=== PATIENT | male | born 2000 | race Caucasian/White ===

== ENCOUNTER 2022-01-13 14:34 | Emergency (ER) | payer MEDICAID, SELFPAY ==
[2022-01-13 14:50] VITALS: BP 128/79; PULSE 102; RESP 16; TEMP 36.3; O2SAT 97
--- NOTE | 2022-01-13 15:38 | ED.DENTAL ---
HPI - Dental/Oral General Chief complaint: Dental/Oral Stated complaint: SORE IN MOUTH Time Seen by Provider: 01/13/22 14:36 Source: patient and RN notes reviewed Mode of arrival: ambulatory Limitations: no limitations History of Present Illness Location: Tooth # (32) Onset (ago): day(s) (1) Duration: constant Severity: mild Severity scale (1-10): 4 Relieving factors: nothing Exacerbating factors: chewing Context: poor dental care Treatment prior to arrival: none Related Data Allergies Allergy/AdvReac Type Severity Reaction Status Date / Time No Known Allergies Allergy Verified 01/13/22 15:02 Review of Systems Review of Systems: All systems reviewed & are unremarkable except as noted in HPI and below PMFSH Past Medical History Medical History Aphthous ulcer Dental abscess Exam Const: General: no acute distress Orientation/consciousness: patient oriented x3 Limitations: no limitations HENMT: Head: normal to inspection Ears: external ears normal, TM's normal bilaterally and EAC's normal General nose exam: Normal external nose present and Normal nares present Face and sinus: normal facial exam and sinuses nontender Mouth: Yes lip normal and Yes moist mucous membranes Teeth and gingiva: abnormal tooth and associated gingiva Eyes: Conjunctivae: conjunctivae normal Pupils: Equal, round and reactive pupils present EOM: EOMs intact bilaterally Neck: Neck: normal visual inspection, no lymphadenopathy and no meningeal signs Chest: Chest palpation & inspection: normal inspection of the chest Resp: Effort & Inspection: normal respiratory effort Auscultation: clear to auscultation bilaterally Cardio: Rate: regular rate Rhythm: regular rhythm GI: GI Palp: Yes Soft to palpation and No Tenderness to palpation present (GI) Auscultation: normal bowel sounds : General: Yes bladder normal to palpation and Yes no CVA tenderness Testes: Testes normal Back/Spine/Pelvis: Back: no CVA tenderness Skin: General skin exam: normal color Rashes: no rashes Neuro: General: patient oriented x3, moves all extremities, no meningeal signs, no focal motor deficits and CN's II-XI intact bilaterally Extrem: General: normal to inspection and no pedal edema Psych: Appearance: grossly normal and well kempt Mental Status: mental status grossly normal Affect: normal affect Attitude: cooperative Thought content: Yes Normal thought content present Course Course Emergency Course: Pt was stable in the ED, less painful. Reevaluation(s) Reevaluation #1: VSS. Date: 01/13/22 Time: 14:57 Vital Signs Vital signs: Vital Signs Temperature 36.3 C L 01/13/22 14:50 Pulse Rate 102 H 01/13/22 14:50 Respiratory Rate 16 01/13/22 14:50 Blood Pressure 128/79 01/13/22 14:50 Pulse Oximetry 97 01/13/22 14:50 Temperature 36.3 C L 01/13/22 14:50 Pulse Rate 102 H 01/13/22 14:50 Respiratory Rate 16 01/13/22 14:50 Blood Pressure 128/79 01/13/22 14:50 Pulse Oximetry 97 01/13/22 14:50 MDM - Dental/Oral Differential Diagnosis Differential diagnosis: Likely gingival abscess, dental caries, toothache, dental abscess and aphthous ulcer Medical Records Attestation: I reviewed the patient's medical records. Critical Care Time Critical Care Time Critical Care Time: No Total Critical Care Time: 0 Discharge Plan Discharge Clinical Impression: Dental abscess, Aphthous ulcer Patient Disposition: Home, Self-Care Condition: Stable Instructions: Antibiotic Form, Dental Abscess (ED), Canker Sores (ED) Additional Instructions: Home. May RTC prn. Dentist in 1-2 days. Rx below. Salt water gargles. Prescriptions: New amoxicillin 875 mg tablet 875 mg PO Q12H Qty: 20 RF: 0 ibuprofen 800 mg tablet 800 mg PO TID Qty: 20 RF: 0 omeprazole magnesium [Prilosec OTC] 20 mg tablet,delayed release (DR/EC) 20 mg PO BID Qty: 20 RF: 0 Fo
[2022-01-13] MEDS: ACETAMINOPHEN 325 MG TABLET 650 MG PO (15:41)
== END 2022-01-13 15:45 | disposition home or self-care (01) ==
PROVIDERS: Emergency Provider Emergency Medicine
DX: K04.7 Periapical abscess without sinus (principal); K12.0 Recurrent oral aphthae
CPT/HCPCS: 99283; A9270

== ENCOUNTER 2022-04-12 01:23 | Emergency (ER) | payer OTHER, SELFPAY ==
[2022-04-12] VITALS (19 sets, daily range): BP systolic 125–168; BP diastolic 78–103; PULSE 100–125; RESP 18–30; TEMP 37.2–37.4; O2SAT 97–100
--- NOTE | 2022-04-12 01:45 | ED.NAVMDI ---
HPI - Nausea/Vomiting/Diarrhea General Chief complaint: Nausea/Vomiting/Diarrhea Stated complaint: Diabetic Source: patient, EMS and RN notes reviewed Mode of arrival: ambulatory Limitations: no limitations History of Present Illness MD elicited complaint: nausea and vomiting Onset (ago): day(s) (1) Description of vomiting: bilious Associated nausea: Yes Associated abdominal pain: No Location of pain: none Exacerbating factors: eating Relieving factors: none Associated symptoms: myalgias, fever/chills, headaches, malaise, shortness of breath and weakness Related Data Home Medications Medication Instructions Recorded Confirmed gabapentin 100 mg capsule 100 mg PO BID 04/12/22 04/12/22 insulin glargine 100 unit/mL (3 30 unit subcut HS 04/12/22 04/12/22 mL) subcutaneous pen (Lantus Solostar U-100 Insulin) insulin lispro 100 unit/mL See Rx Instructions .Route .COMPLEX 04/12/22 04/12/22 subcutaneous pen (Humalog KwikPen (U-100) Insulin) Allergies Allergy/AdvReac Type Severity Reaction Status Date / Time No Known Allergies Allergy Verified 04/12/22 01:30 Review of Systems Review of Systems: All systems reviewed & are unremarkable except as noted in HPI and below Constitutional: Constitutional: Reports fever(s) and Reports weakness Cardiovascular: Cardiovascular: Reports rapid heart rate Respiratory: Respiratory: Reports dyspnea Gastrointestinal: Gastrointestinal: Reports as per HPI Genitourinary: Genitourinary: Reports urinary frequency PMFSH Past Medical History Medical History Type 1 diabetes Social History Social History Smoking status: Never smoker Alcohol intake: never Substance use: current Substance use type: marijuana Spiritual care concerns: No Exam Const: General: alert and ill appearing acutely Nutritional Appearance: well nourished and thin Orientation/consciousness: patient oriented x3 Limitations: no limitations HENMT: Head: normal to inspection Ears: external ears normal Face and sinus: normal facial exam Mouth: Yes dry mucous membranes Eyes: Conjunctivae: conjunctivae normal Cornea: corneas normal Pupils: Equal, round and reactive pupils present EOM: EOMs intact bilaterally Neck: Neck: normal visual inspection Resp: Effort & Inspection: tachypneic Auscultation: clear to auscultation bilaterally Cardio: Rate: tachycardic Rhythm: regular rhythm GI: GI Palp: Yes Soft to palpation and No Tenderness to palpation present (GI) Auscultation: normal bowel sounds Back/Spine/Pelvis: Cervical Spine: cervical ROM normal Thoracic/Lumbar Spine: thoraco-lumbar ROM normal Skin: General skin exam: normal color Rashes: no rashes Neuro: General: patient oriented x3, moves all extremities, no focal motor deficits and CN's II-XI intact bilaterally Speech: normal speech Extrem: General: normal to inspection and no clubbing, cyanosis or edema Psych: Mental Status: mental status grossly normal Affect: normal affect Attitude: cooperative Course Vital Signs Vital signs: Vital Signs Temperature 37.2 C 04/12/22 01:23 Pulse Rate 118 H 04/12/22 01:23 Respiratory Rate 30 H 04/12/22 01:23 Blood Pressure 167/89 H 04/12/22 01:23 Pulse Oximetry 100 04/12/22 01:23 Oxygen Delivery Room Air 04/12/22 01:23 Temperature 37.4 C 04/12/22 06:51 Pulse Rate 105 H 04/12/22 07:25 Respiratory Rate 20 04/12/22 07:25 Blood Pressure 153/85 H 04/12/22 07:25 Pulse Oximetry 100 04/12/22 07:25 Oxygen Delivery Room Air 04/12/22 07:25 Oxygen Flow Rate 2 04/12/22 02:15 Transfer Transfered to: [facility] Transfer rationale: higher level of care. Accepting physician: Dr. Foley MDM - Nausea/Vomiting/Diarrhea Lab Data Attestation: I reviewed the patient's lab results. Result diagrams: 04/12/22 05:50 04/12/22
[2022-04-12] MEDS: LACTATED RINGERS 1,000 ML 999 ML IV CONT ×2 (01:55→03:01)
[2022-04-12] MEDS: INSULIN HUMAN REGULAR (*BKC) 100 UNITS/ML 10 UNITS SUB-Q (02:09)
[2022-04-12 02:26] LABS: SARS-CoV-2 Ag Negative (Negative)
[2022-04-12 02:41] LABS: Base Excess ABG -24.8 mmol/L (0-2); HCO3 ABG 2.8 mmol/L (23-29); Oxygen Saturation ABG 96.9 % (95-97); Oxyhemoglobin 95.9 % (94-100); PO2 ABG 117.8 mmHg (80-90); Total Hemoglobin 17.7 g/dL (12.0-18.0); pH ABG 7.07 (7.35-7.45)
[2022-04-12 02:42] LABS: Glucose Point of Care > 450 mg/dl (65-105)
[2022-04-12 02:45] LABS: Device NASAL CANNULA; Modified Allen's Test Pass; Site Drawn LEFT RADIAL
[2022-04-12 02:49] LABS: Hematocrit 49.8 % (40.0-54.0); Hemoglobin 16.6 g/dL (14.0-18.0); Mean Corpuscular HGB Conc 33.3 g/dL (32.0-36.0); Mean Corpuscular Hemoglobin 32.2 pg (27.0-31.0); Mean Corpuscular Volume 96.7 fL (78.0-102.0); Mean Platelet Volume 9.4 fl (8.7-11.0); Platelet Count Result 367 K/mm3 (150-420); Red Blood Count 5.15 M/mm3 (4.70-6.10); Red Cell Distribution Width 12.5 % (11.6-14.4)
[2022-04-12 02:55] LABS: White Blood Count 29.9 K/mm3 (4.8-10.8)
[2022-04-12 03:02] LABS: Lactic Acid Reflex 3.3 mmol/L (0.4-2.0)
[2022-04-12] MEDS: ONDANSETRON INJ 4 MG/2 ML VIAL IV PUSH (03:02)
[2022-04-12] MEDS: INSULIN HUMAN REGULAR (*BKC) 100 UNITS/ML 10 UNITS IV PUSH (03:02)
[2022-04-12 03:05] LABS: Alanine Aminotransferase 39 U/L (16-63); Albumin Level 3.8 g/dL (3.4-5.0); Alkaline Phosphatase 121 U/L (46-116); Aspartate Amino Transferase 23 U/L (15-37); Bilirubin,Total 0.5 mg/dL (0.00-1.00); Blood Urea Nitrogen 12 mg/dL (7-18); Calcium 7.9 mg/dL (8.5-10.1); Carbon Dioxide 5 mmol/L (21-32); Chloride 95 mmol/L (98-108); Estimated CRCL calculation 76 ml/min; Estimated Glomerular Filt Rate > 60; Magnesium 1.9 mg/dL (1.8-2.4); Potassium 5.7 mmol/L (3.5-5.1); Sodium 129 mmol/L (136-145); Total Protein 7.8 g/dL (6.4-8.2)
[2022-04-12 03:06] LABS: CRP < 0.5 mg/dL (0.0-0.9); Osmolality Calculated 291 mOsm/kg (285-295)
[2022-04-12 03:07] LABS: Glucose 529 mg/dL (70-99)
[2022-04-12] MEDS: INSULIN REG 100 UNITS/100 ML 100 UNITS/100 ML BAG IV CONT (03:11)
[2022-04-12 03:12] LABS: Add Urine Microscopic? YES; Appearance Urine Clear (Clear); Bilirubin Urine Negative (Negative); Blood Urine 1+ (Negative); Color Urine Light Yellow (Yellow); Glucose Urine UA 2+ (Negative); Ketones Urine 3+ (Negative); Leukocyte Esterase Ur Negative LEU/UL (Negative); Nitrate Urine Negative (Negative); Protein Urine 2+ (Negative); Specific Grav Ur >= 1.030 (1.010-1.020); Urobilinogen Urine 0.2 mg/dL (0.2-1.0); pH Urine 5.5 (5.0-8.0)
[2022-04-12 03:16] LABS: Acetone Small (Negative)
[2022-04-12 03:22] LABS: RBC Urine None seen /hpf (0-2); Squamous Epithelial Cell Urine None seen /hpf (Few); WBC Urine None seen /hpf (0-3)
[2022-04-12 03:23] LABS: Bacteria Urine None seen /hpf
--- NOTE | 2022-04-12 03:26 | PC.NURSE ---
RN rechecked pt's blood sugar and got 447.
[2022-04-12 03:29] LABS: Band Neutrophils Percent 9 % (0-6); Basophils Percent Manual 0 % (0-1); Eosinophils Percent Manual 0 % (1-6); Lymphocytes Absolute Manual 4.18 K/mm3 (1.1-4.5); Lymphocytes Percent Manual 14 % (18-44); Metamyelocytes Percent 3 %; Monocytes Percent Manual 0 % (3-9); Neutrophils Absolute Manual 24.81 K/mm3 (1.3-6.7); Neutrophils Percent Manual 74 % (46-73); Platelet Estimate Adequate (Adequate); Total Cells Counted 100
[2022-04-12 03:37] LABS: SARS-CoV-2 RNA PCR Negative (Negative)
[2022-04-12 03:45] LABS: Glucose Point of Care 407 mg/dl (65-105)
--- NOTE | 2022-04-12 03:45 | PC.NURSE ---
RN checked pt's blood sugar and got 407.
[2022-04-12 04:02] LABS: Glucose Point of Care 334 mg/dl (65-105)
--- NOTE | 2022-04-12 04:04 | PC.NURSE ---
RN called ERP to update on pt's blood sugars and to find when RN should stop the insulin drip. ERP states to recheck blood sugars every 30 minutes and call him when the sugar is at 250. ERP updated on labs and pt condition. No new orders received.
[2022-04-12 04:33] LABS: Glucose Point of Care 275 mg/dl (65-105)
[2022-04-12 05:03] LABS: Glucose Point of Care 202 mg/dl (65-105)
--- NOTE | 2022-04-12 05:03 | PC.NURSE ---
RN rechecked pt's blood sugar and it is 202. ERP called. ERP ordered for insulin drip to be stopped [facility] RN stops insulin drip and calls eyewear manufacturing supervisorArin to start transfer process.
--- NOTE | 2022-04-12 05:15 | PC.NURSE ---
Pt's grandmother asks for pt for pt's step father Adam John to be allowed to talk to pt if Adam calls.
--- NOTE | 2022-04-12 05:24 | PC.NURSE ---
RN talked to Arin, fast food shift supervisor from [employer], and asked for a repeat BMP and lactic. Arin also states that Dr. Edwards will be calling soon.
[2022-04-12] MEDS: LACTATED RINGERS 1,000 ML 200 ML IV CONT (05:30)
[2022-04-12 05:42] LABS: Reflex Lactic Acid Yes or No Add Lactic
--- NOTE | 2022-04-12 05:50 | PC.NURSE ---
Addendum entered by Yony Morgan RN 04/12/22 06:06: This was done at 0554. Original Note: RN checked pt's blood sugar and it was 178.
[2022-04-12 05:52] LABS: Base Excess ABG -18.9 mmol/L (0-2); HCO3 ABG 5.4 mmol/L (23-29); Oxygen Content ABG 24.5 %vol (16.0-22.0); Oxygen Saturation ABG 98.3 % (95-97); Oxyhemoglobin 97.4 % (94-100); PO2 ABG 124.1 mmHg (80-90); Total Hemoglobin 17.8 g/dL (12.0-18.0); pH ABG 7.22 (7.35-7.45)
[2022-04-12 05:55] LABS: Hematocrit 49.9 % (40.0-54.0); Hemoglobin 17.1 g/dL (14.0-18.0); Mean Corpuscular HGB Conc 34.3 g/dL (32.0-36.0); Mean Corpuscular Hemoglobin 31.8 pg (27.0-31.0); Mean Corpuscular Volume 92.9 fL (78.0-102.0); Platelet Count Result 337 K/mm3 (150-420); Red Blood Count 5.37 M/mm3 (4.70-6.10); Red Cell Distribution Width 12.4 % (11.6-14.4)
[2022-04-12 05:57] LABS: Device ROOM AIR; Modified Allen's Test Pass; Site Drawn RIGHT RADIAL
[2022-04-12 05:58] LABS: White Blood Count 33.4 K/mm3 (4.8-10.8)
[2022-04-12 06:00] LABS: PCO2 ABG 13.5 mmHg (35-45)
[2022-04-12 06:06] LABS: Glucose Point of Care 178 mg/dl (65-105)
[2022-04-12 06:09] LABS: Anion Gap 28 mmol/L (8-16); Blood Urea Nitrogen 10 mg/dL (7-18); Calcium 8.5 mg/dL (8.5-10.1); Carbon Dioxide 6 mmol/L (21-32); Chloride 99 mmol/L (98-108); Estimated CRCL calculation 90 ml/min; Estimated Glomerular Filt Rate > 60; Glucose 181 mg/dL (70-99); Osmolality Calculated 280 mOsm/kg (285-295); Potassium 4.4 mmol/L (3.5-5.1); Sodium 133 mmol/L (136-145)
[2022-04-12 06:18] LABS: Lactic Acid 1.4 mmol/L (0.4-2.0)
[2022-04-12 06:30] LABS: Band Neutrophils Percent 9 % (0-6); Lymphocytes Absolute Manual 7.34 K/mm3 (1.1-4.5); Lymphocytes Percent Manual 22 % (18-44); Metamyelocytes Percent 3 %; Monocytes Absolute Manual 1.67 K/mm3 (0.1-0.90); Monocytes Percent Manual 5 % (3-9); Neutrophils Absolute Manual 23.38 K/mm3 (1.3-6.7); Neutrophils Percent Manual 61 % (46-73); Platelet Estimate Adequate (Adequate); Total Cells Counted 100
--- NOTE | 2022-04-12 06:44 | PC.NURSE ---
RN talked to Mabel ICU nurse and took report. Mabel states that she is the night nurse and the oncoming nurse who will be taking care of pt is Kathie.
[2022-04-12 06:52] LABS: Glucose Point of Care 151 mg/dl (65-105)
--- NOTE | 2022-04-12 07:30 | PC.NURSE ---
Pt has LR still running at 200 mLs an hour. pt has received 384.1 mLs of LR and still has fluids running when transferred to EMS stretcher.
== END 2022-04-12 07:32 | disposition short-term general hospital (02) ==
PROVIDERS: Emergency Provider Emergency Medicine; PCP Internal Medicine
DX: E10.10 Type 1 diabetes mellitus with ketoacidosis without coma (principal); Z20.822 Contact with and (suspected) exposure to COVID-19
CPT/HCPCS: 36415; 36600; 80048; 80053; 81001; 82010; 82805; 82948; 83605; 83735; 85025; 86140; 87040; 87426; 96361; 96365; 96366; 96375; 99285; C9803; J1815; J2405; J7120; U0003; U0005

== ENCOUNTER 2022-04-12 08:48 | Inpatient (IN) | payer OTHER, SELFPAY ==
[2022-04-12] VITALS (22 sets, daily range): BP systolic 95–148; BP diastolic 65–110; PULSE 93–121; RESP 15–24; TEMP 36.4–37.3; O2SAT 96–100; BMI 21.7
--- NOTE | ~2022-04-12 | XR_ITS ---
EXAMINATION: XR chest 1V portable DATE: 04/12/2022 09:14 INDICATION: Diabetic ketoacidosis TECHNIQUE: frontal view of the chest was obtained. COMPARISON: None FINDINGS: The lungs are clear with no focal airspace opacities, pulmonary edema, pleural effusion or pneumothor ax. The cardiomediastinal silhouette is normal. Visualized bones and soft tissues are unremarkable. IMPRESSION: 1. No acute cardiopulmonary disease. Reviewed, dictated and finalized at location A.
[2022-04-12 08:14] LABS: Glucose Point of Care 162 mg/dl (65-105)
--- NOTE | 2022-04-12 08:30 | ADMGEN ---
This patient, Neftali Ochoa, was admitted to Intensive Care Unit-10. Patient/family oriented to hospital policies and general routines including ID bracelet, bed and alarms, visiting hours, pain management, procedures, bathroom and other care routines, personal items, smoking policy, room service/diet, and visiting hours. Information on how to activate the Rapid Response Team has been discussed. Patient/Family are encouraged to report perceived risks to care and to ask questions if they do not understand what they are told or what they should do.
--- NOTE | 2022-04-12 08:35 | ADMGEN ---
This patient, Neftali Ochoa, was admitted to Intensive Care Unit-10 at 0803. Patient/family oriented to hospital policies and general routines including ID bracelet, bed and alarms, visiting hours, pain management, procedures, bathroom and other care routines, personal items, smoking policy, room service/diet, and visiting hours. Information on how to activate the Rapid Response Team has been discussed. Patient/Family are encouraged to report perceived risks to care and to ask questions if they do not understand what they are told or what they should do.
--- NOTE | 2022-04-12 08:41 | WPDCNINT ---
Assessment and Plan Assessment and plan (1) Diabetic keto-acidosis: Qualifiers: Diabetes mellitus complication detail: without coma Diabetes mellitus type: type 1 Qualified Code(s): E10.10 - Type 1 diabetes mellitus with ketoacidosis without coma Code(s): E11.10 - Type 2 diabetes mellitus with ketoacidosis without coma Status: Acute Assessment and Plan: Patient received 3 L of IVF bolus in ER and I will IV fluid infusion Patient will be started on Insulin infusion and Q1H glucose monitoring Serial labs are ordered Replace electrolytes as needed Will transition to SC insulin once AG is closed UA was negative Will check chest x-ray Check lipase and triglyceride level (2) Type 1 diabetes: Code(s): E10.9 - Type 1 diabetes mellitus without complications Status: Acute Assessment and Plan: See above (3) Nausea & vomiting: Code(s): R11.2 - Nausea with vomiting, unspecified Status: Acute Assessment and Plan: P.r.n. Zoan (4) Leukocytosis: Code(s): D72.829 - Elevated white blood cell count, unspecified Status: Acute Assessment and Plan: Likely secondary to SIRS from DKA UA was negative Check chest x-ray Monitor cell count Hold any antibiotics at this time Additional Plan DVT prophylaxis -SCDs Nutrition -NPO Code Status - Full Code Total Critical Care Time - 32 minutes Due to a high probability of clinically significant, life threatening deterioration, the patient required my highest level of preparedness to intervene emergently and I personally spent this critical care time directly and personally managing the patient. This critical care time included obtaining a history; examining the patient; pulse oximetry; ordering and review of studies; arranging urgent treatment with development of a management plan; evaluation of patient's response to treatment; frequent reassessment; and discussions with other providers. It was exclusive of separately billable procedures and treating other patients and teaching time. Please see Assessment and Plan section and the rest of the note for further information on patient assessment and treatment Customer Support Engineer Consult Note Consult date: 04/12/22 Reason for consult: DKA HPI: Neftali Ochoa is a 21 year old male with past medical history of type 1 diabetes and multiple admissions with DKA presented to [facility] ED with chief complaint of 'DKA'. Patient states that he takes 30 units of Lantus and 10-15 units of insulin depending on his meal daily and he claims compliance with his medication. Despite that yesterday he started feeling sick. Patient states that he had abdominal pain nausea vomiting and inability to keep any food down. He also states that he felt weak and tired. He also complains of shortness of breath. Patient denies any fever cough diarrhea dysuria hematuria melena hematochezia. No chest pain. All other systems were reviewed and were negative In ED patient was found to be in DKA and was given IV fluid bolus transferred to [facility] ICU for further evaluation management. His lactic acid levels normal Review of Systems Review of Systems: All systems reviewed & are unremarkable except as noted in HPI and below (HPI) PMFSH Past Medical History Medical History (Updated 04/12/22 @ 08:43 by Bonilla Feldman MD) Type 1 diabetes Social History Social History (Updated 04/12/22 @ 01:52 by Carlos Oh MD) Alcohol intake: never Substance use: current Substance use type: marijuana Spiritual care concerns: No Meds Home Medications and Allergies Home Medications Medication Instructions Recorded Confirmed Type gabapentin 100 mg capsule 100 mg PO BID 04/12/22 04/12/22 History insulin glargine 100 unit/mL (3 30 unit subcut HS 04/12/22 04/12/22 History mL) subcutaneous pen (Lantus Solostar U-100 Insulin) insulin lispro 100 unit/mL See Rx Instructions .Ro
[2022-04-12 08:54] LABS: Hemoglobin A1C 10.1 % (<5.7)
[2022-04-12] MEDS: KCL 20 MEQ/D5/0.45% SOD CHL 1,000 ML 150 ML IV CONT ×2 (09:08→15:18)
[2022-04-12] MEDS: ONDANSETRON INJ 4 MG/2 ML VIAL IV PUSH (09:08)
[2022-04-12 09:09] LABS: Anion Gap 24 mmol/L (8-16); Blood Urea Nitrogen 7 mg/dL (9-20); Calcium 8.9 mg/dL (8.4-10.2); Carbon Dioxide 6 mmol/L (22-30); Chloride 104 mmol/L (98-107); Estimated CRCL calculation 129 ml/min; Estimated Glomerular Filt Rate > 60; Glucose 170 mg/dL (65-110); Magnesium 1.6 mg/dL (1.6-2.3); Phosphorus 3.1 mg/dL (2.5-4.5); Potassium 4.7 mmol/L (3.4-5.0); Sodium 134 mmol/L (137-145)
[2022-04-12 09:12] LABS: Glucose Point of Care 228 mg/dl (65-105)
[2022-04-12] MEDS: INSULIN HUMAN REGULAR (*BKC) 100 UNITS in SODIUM CHLORIDE 0.9% IV 99 ML IV CONT (09:36)
[2022-04-12 10:03] LABS: Glucose Point of Care 255 mg/dl (65-105)
--- NOTE | 2022-04-12 10:42 | PM.IMHP ---
H&P: HPI History of Present Illness Date/Time: 04/12/22 10:42 Chief Complaint: Neftali Ochoa is a 21 year old male with past medical history of type 1 diabetes and multiple admissions with DKA presented to [facility] ED with chief complaint of 'DKA'.? Patient states that he takes 30 units of Lantus and 10-15 units of insulin depending on his meal daily and he claims compliance with his medication.? Despite that yesterday he started feeling sick.? Patient states that he had abdominal pain nausea vomiting and inability to keep any food down.? He also states that he felt weak and tired.? He also complains of shortness of breath.? Patient denies any fever cough diarrhea dysuria hematuria melena hematochezia.? No chest pain.? All other systems were reviewed and were negative In ED patient was found to be in DKA Review of Systems Review of Systems: 10 point ROS negative except as stated in HPI / Subjective PMFSH Past Medical History Medical History Type 1 diabetes Social History Social History Alcohol intake: never Substance use: current Substance use type: marijuana Spiritual care concerns: No Meds Home Medications and Allergies Home Medications Medication Instructions Recorded Confirmed Type gabapentin 100 mg capsule 100 mg PO BID 04/12/22 04/12/22 History insulin glargine 100 unit/mL (3 30 unit subcut HS 04/12/22 04/12/22 History mL) subcutaneous pen (Lantus Solostar U-100 Insulin) insulin lispro 100 unit/mL See Rx Instructions .Route .COMPLEX 04/12/22 04/12/22 History subcutaneous pen (Humalog KwikPen (U-100) Insulin) Allergies Allergy/AdvReac Type Severity Reaction Status Date / Time No Known Allergies Allergy Verified 04/12/22 01:30 Vital Signs Vital Signs - 24 hr 04/12/22 08:15 04/12/22 09:42 Temperature 99.2 F Pulse Rate 107 H 98 Respiratory Rate 24 H 20 Blood Pressure 131/100 H 141/90 H Pulse Oximetry 100 100 Exam Narrative: General: alert and oriented Psych: appropriate mood nad affect Eyes: PERRLA Neck: Trachea midline, no new lesions Skin: no changes Lungs: CTA Cardiac: Normal S1,S2, no MGR ABD: soft, nd, nt, nbs Ext: no new lesions, no cce Vasc: Pulses intact H&P: Results Labs Labs: [facility] 04/12/22 08:37 Sodium 134 L Potassium 4.7 Chloride 104 Carbon Dioxide 6 L BUN 7 L Creatinine 0.70 Glucose 170 H Calcium 8.9 Assessment and Plan Assessment and plan (1) Leukocytosis: Code(s): D72.829 - Elevated white blood cell count, unspecified Status: Acute Assessment and Plan: Likely related to dehydration and DKA. Cultures pending. (2) Nausea & vomiting: Code(s): R11.2 - Nausea with vomiting, unspecified Status: Acute Assessment and Plan: Likely related DKA. (3) Type 1 diabetes: Code(s): E10.9 - Type 1 diabetes mellitus without complications Status: Acute (4) Diabetic keto-acidosis: Qualifiers: Diabetes mellitus complication detail: without coma Diabetes mellitus type: type 1 Qualified Code(s): E10.10 - Type 1 diabetes mellitus with ketoacidosis without coma Code(s): E11.10 - Type 2 diabetes mellitus with ketoacidosis without coma Status: Acute Assessment and Plan: DKA management per ICU. Continue IV fluids, continue insulin. Monitor electrolytes. No infection noted right now. Cultures pending
[2022-04-12 11:05] LABS: Glucose Point of Care 142 mg/dl (65-105)
[2022-04-12] MEDS: MAGNESIUM SULF 2 GM/WATER 50ML 2 GM/50 ML BAG IVPB (11:36)
[2022-04-12 12:26] LABS: Glucose Point of Care 107 mg/dl (65-105)
[2022-04-12 12:35] LABS: Anion Gap 15 mmol/L (8-16); Blood Urea Nitrogen 7 mg/dL (9-20); Calcium 8.4 mg/dL (8.4-10.2); Carbon Dioxide 13 mmol/L (22-30); Chloride 106 mmol/L (98-107); Estimated CRCL calculation 149 ml/min; Estimated Glomerular Filt Rate > 60; Glucose 102 mg/dL (65-110); Potassium 3.7 mmol/L (3.4-5.0); Sodium 134 mmol/L (137-145)
[2022-04-12 12:37] LABS: Lipase 27 U/L (23-300)
[2022-04-12 12:41] LABS: Triglycerides 461 mg/dL (<150)
[2022-04-12 13:14] LABS: Glucose Point of Care 109 mg/dl (65-105)
[2022-04-12 13:20] LABS: Appearance Urine Clear (Clear); Bilirubin Urine 2+ (Negative); Blood Urine 1+ (Negative); Color Urine Yellow (Yellow); Glucose Urine UA Negative (Negative); Ketones Urine 4+ mg/dL (Negative); Leukocyte Esterase Ur Negative LEU/UL (NEGATIVE); Nitrate Urine Negative (Negative); Protein Urine 3+ mg/dL (Negative); Specific Grav Ur >= 1.030 (1.001-1.035); Urobilinogen Urine 0.2 mg/dL (<2.0); pH Urine 5.5 (5.0-9.0)
[2022-04-12 13:27] LABS: Bacteria Urine Trace /hpf; Mucus Urine Rare /lpf; RBC Urine 0-2 /hpf (0-2); Squamous Epithelial Cell Urine Rare /hpf (Few); WBC Urine 0-3 /hpf (0-3)
[2022-04-12 13:33] LABS: Add Urine Microscopic? YES
[2022-04-12 14:05] LABS: Glucose Point of Care 114 mg/dl (65-105)
--- NOTE | 2022-04-12 15:09 | PC.NURSE ---
Pt's grandmother, Maria L Padgett, called for update on condition. She relayed that the patient has recently moved to [place] from [place] to live with herself and her . 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 He has been feeling ill for several weeks, but has avoided coming to the hospital because he did not want to lose his job. When he was having to use the bathroom too frequently and checking his blood glucose 5-6 times during a shift, his grandmother was able to convince him to go to the emergency department. He has recently seen an sand cutter and that physician has ordered an insulin pump for the patient. However, the pump is on backorder. Grandmother states that the patient is very helpful, working around their home, and seems to try to follow a diabetic diet and to take his insulin appropriately. She did describe a diet high in carbohydrates. A diabetic education consult has been placed for the patient.
[2022-04-12 15:17] LABS: Glucose Point of Care 126 mg/dl (65-105)
[2022-04-12 16:24] LABS: Anion Gap 15 mmol/L (8-16); Blood Urea Nitrogen 6 mg/dL (9-20); Calcium 8.4 mg/dL (8.4-10.2); Carbon Dioxide 14 mmol/L (22-30); Chloride 105 mmol/L (98-107); Estimated CRCL calculation 149 ml/min; Estimated Glomerular Filt Rate > 60; Glucose 109 mg/dL (65-110); Potassium 3.7 mmol/L (3.4-5.0); Sodium 134 mmol/L (137-145)
[2022-04-12 16:35] LABS: Glucose Point of Care 129 mg/dl (65-105)
[2022-04-12 17:42] LABS: Glucose Point of Care 113 mg/dl (65-105)
[2022-04-12 18:30] LABS: Glucose Point of Care 119 mg/dl (65-105)
[2022-04-12 19:34] LABS: Glucose Point of Care 124 mg/dl (65-105)
[2022-04-12 20:51] LABS: Glucose Point of Care 137 mg/dl (65-105)
[2022-04-12 21:14] LABS: Anion Gap 11 mmol/L (8-16); Blood Urea Nitrogen 6 mg/dL (9-20); Calcium 8.6 mg/dL (8.4-10.2); Carbon Dioxide 17 mmol/L (22-30); Chloride 103 mmol/L (98-107); Estimated CRCL calculation 175 ml/min; Estimated Glomerular Filt Rate > 60; Glucose 129 mg/dL (65-110); Potassium 3.3 mmol/L (3.4-5.0); Sodium 131 mmol/L (137-145)
[2022-04-12] MEDS: POTASSIUM CHLORIDE 20 MEQ TABLET 40 MEQ PO (22:00)
[2022-04-12] MEDS: KCL 20MEQ/0.9% SOD CHL 1,000 ML 100 ML IV CONT (22:00)
[2022-04-12] MEDS: INSULIN GLARGINE (*BKC) 100 UNITS/ML 20 UNITS SUB-Q (22:00)
[2022-04-13] VITALS (9 sets, daily range): BP systolic 93–137; BP diastolic 64–77; PULSE 82–116; RESP 15–25; TEMP 36.2–36.9; O2SAT 97–100; BMI 21.7
[2022-04-13] MEDS: INSULIN ASPART (*BKC) 100 UNITS/ML SUB-Q ×6 (00:08→17:48)
[2022-04-13 00:14] LABS: Glucose Point of Care 250 mg/dl (65-105)
[2022-04-13 04:37] LABS: Hemoglobin 15.5 g/dL (14.0-18.0); Mean Corpuscular HGB Conc 35.2 g/dl (32-36); Mean Corpuscular Volume 90.9 fl (80-100); Mean Platelet Volume 8.8 fl (7.4-10.4); Platelet Count Result 191 k/mm3 (150-375); Red Blood Count 4.84 M/mm3 (4.6-6.20); Red Cell Distribution Width 12.8 % (11.5-14.5); White Blood Count 10.9 K/mm3 (4.5-10.0)
[2022-04-13 04:56] LABS: Alanine Aminotransferase 25 U/L (6-50); Albumin Level 3.7 g/dL (3.5-5.1); Alkaline Phosphatase 109 U/L (38-126); Anion Gap 11 mmol/L (8-16); Aspartate Amino Transferase 26 U/L (17-59); Bilirubin,Total 0.9 mg/dL (0.2-1.3); Blood Urea Nitrogen 7 mg/dL (9-20); Calcium 8.2 mg/dL (8.4-10.2); Carbon Dioxide 19 mmol/L (22-30); Chloride 105 mmol/L (98-107); Estimated CRCL calculation 175 ml/min; Estimated Glomerular Filt Rate > 60; Glucose 180 mg/dL (65-110); Magnesium 2.1 mg/dL (1.6-2.3); Phosphorus 1.3 mg/dL (2.5-4.5); Sodium 135 mmol/L (137-145)
[2022-04-13 06:27] LABS: Glucose Point of Care 210 mg/dl (65-105)
[2022-04-13 07:53] LABS: Glucose Point of Care 127 mg/dl (65-105)
--- NOTE | 2022-04-13 08:06 | WPDINTPN ---
Progress Note: A&P Assessment and Plan (1) Diabetic keto-acidosis: Qualifiers: Diabetes mellitus complication detail: without coma Diabetes mellitus type: type 1 Qualified Code(s): E10.10 - Type 1 diabetes mellitus with ketoacidosis without coma Code(s): E11.10 - Type 2 diabetes mellitus with ketoacidosis without coma Status: Inactive Assessment and Plan: Patient received 3 L of IVF bolus in ER and I will IV fluid infusion Patient was started on Insulin infusion and Q1H glucose monitoring Serial labs were monitored Patient's anion gap has closed and patient has been transition to subcutaneous insulin I will increase Lantus at 30 units at bedtime, add with meal insulin and continue sliding scale Will transition to SC insulin once AG is closed UA and chest x-ray were negative Lipase level was normal Triglyceride level was elevated at 461 likely secondary to uncontrolled diabetes (2) Type 1 diabetes: Code(s): E10.9 - Type 1 diabetes mellitus without complications Status: Acute Assessment and Plan: See above (3) Nausea & vomiting: Code(s): R11.2 - Nausea with vomiting, unspecified Status: Acute Assessment and Plan: Improved Continue P.r.n. Zofran (4) Leukocytosis: Code(s): D72.829 - Elevated white blood cell count, unspecified Status: Acute Assessment and Plan: Likely secondary to SIRS from DKA UA and chest x-ray were negative Cell count has improved and has normalized today Hold any antibiotics at this time Additional Plan DVT prophylaxis -SCDs Nutrition -diabetic diet Code Status - Full Code Ad cathryn Transfer out of ICU today Subjective Date/time seen: 04/13/22 08:06 Patient feels much better this morning and denies any new complaints. He states his nausea vomiting has resolved and he would like to eat breakfast. Patient ate a sandwich for dinner last night without any issues. Insulin infusion was transitioned off yesterday evening after anion gap closed. He is afebrile as good urine output and his vital signs stable All other systems were reviewed and were negative Review of Systems Review of Systems: All systems reviewed & are unremarkable except as noted in HPI and below (HPI) Exam Narrative: General: Pt is alert awake and in NAD Lungs/Chest: Trachea central Clear BS B/L, No crackles or wheezing. Cardiac: RRR. Normal S1 S2. No murmurs Circulation: Pedal pulses are intact and symmetrical. Abdomen: Normal bowel sounds.. Soft. NT. ND. Extremities: No clubbing, cyanosis or edema. Warm : Brody in place Neurologic: Follows commands. Moves all 4 extremities PERRL AO x3 Skin: No Rash Objective Data Vital Signs Vital Signs: Vital Signs - 24 hr 04/12/22 08:15 04/12/22 09:42 04/12/22 08:09 Temperature 37.3 C Pulse Rate 107 H 98 108 H Respiratory Rate 24 H 20 18 Blood Pressure 131/100 H 141/90 H Pulse Oximetry 100 100 100 Oxygen Delivery 04/12/22 08:10 04/12/22 08:31 04/12/22 09:00 Temperature Pulse Rate 121 H 106 H 97 Respiratory Rate 22 H 21 H 18 Blood Pressure 131/110 H 148/96 H Pulse Oximetry 100 100 99 Oxygen Delivery 04/12/22 09:01 04/12/22 09:31 04/12/22 10:00 Temperature Pulse Rate 99 102 H 105 H Respiratory Rate 18 23 H 21 H Blood Pressure 145/91 H 141/90 H Pulse Oximetry 100 100 100 Oxygen Delivery 04/12/22 10:01 04/12/22 11:00 04/12/22 11:01 Temperature Pulse Rate 106 H 114 H 116 H Respiratory Rate 20 17 20 Blood Pressure 146/93 H 145/90 H Pulse Oximetry 99 99 100 Oxygen Delivery 04/12/22 12:00 04/12/22 12:01 04/12/22 10:00 Temperature Pulse Rate 101 H 102 H 106 H Respiratory Rate 19 18 Blood Pressure 139/85 Pulse Oximetry 98 99 Oxygen Delivery 04/12/22 12:25 04/12/22 08:30 04/12/22 12:35 Temperature Pulse Rate 101 H 116 H 103 H Respiratory Rate 24 H 23 H Blood Pressure Pulse Oximetry 100 100 Oxygen Delivery Room
[2022-04-13] MEDS: SODIUM PHOSPHATE 20 MM in DEXTROSE 5% IN WATER 250 ML 50 MM IVPB (09:26)
--- NOTE | 2022-04-13 10:43 | PC.NURSE ---
This patient, Neftali Ochoa, was transferred to [facility] via ambulation without issue on 04/13/22 at 1040. Personal belongings sent with patient. Report given to CRISTINA Chen. Appropriate documentation sent with patient.
--- NOTE | 2022-04-13 12:41 | PM.IMPN ---
Progress Note: A&P Assessment and Plan (1) Diabetic keto-acidosis: Qualifiers: Diabetes mellitus complication detail: without coma Diabetes mellitus type: type 1 Qualified Code(s): E10.10 - Type 1 diabetes mellitus with ketoacidosis without coma Code(s): E11.10 - Type 2 diabetes mellitus with ketoacidosis without coma Status: Inactive Assessment and Plan: Get now close blood sugars look good. Continue sliding scale insulin with basal insulin. (2) Type 1 diabetes: Code(s): E10.9 - Type 1 diabetes mellitus without complications Status: Acute Assessment and Plan: See above (3) Nausea & vomiting: Code(s): R11.2 - Nausea with vomiting, unspecified Status: Acute Assessment and Plan: Improved Continue P.r.n. Zofran (4) Leukocytosis: Code(s): D72.829 - Elevated white blood cell count, unspecified Status: Acute Assessment and Plan: Likely secondary to SIRS from DKA UA and chest x-ray were negative Cell count has improved and has normalized today Hold any antibiotics at this time Additional Plan DVT prophylaxis -SCDs Nutrition -diabetic diet Code Status - Full Code Ad cathryn Transfer out of ICU today Subjective Date/time seen: 04/13/22 12:41 No new complaints. Tolerating diet Exam Narrative: General: Pt is alert awake and in NAD Lungs/Chest: Trachea central Clear BS B/L, No crackles or wheezing. Cardiac: RRR. Normal S1 S2. No murmurs Circulation: Pedal pulses are intact and symmetrical. Abdomen: Normal bowel sounds.. Soft. NT. ND. Extremities: No clubbing, cyanosis or edema. Warm : Brody in place Neurologic: Follows commands. Moves all 4 extremities PERRL AO x3 Skin: No Rash Objective Data Vital Signs Vital Signs: Vital Signs - 24 hr 04/12/22 14:00 04/12/22 14:00 04/12/22 16:00 Temperature 97.5 F L Pulse Rate 97 99 93 Respiratory Rate 18 Blood Pressure 127/75 Pulse Oximetry 99 Oxygen Delivery 04/12/22 16:00 04/12/22 16:00 04/12/22 18:00 Temperature Pulse Rate 101 H 102 H 94 Respiratory Rate 16 22 H Blood Pressure 107/65 Pulse Oximetry 100 100 Oxygen Delivery Room Air 04/12/22 18:00 04/12/22 20:00 04/12/22 20:00 Temperature Pulse Rate 95 101 H 101 H Respiratory Rate 15 16 Blood Pressure 120/77 Pulse Oximetry 99 98 Oxygen Delivery Room Air 04/12/22 20:00 04/12/22 22:00 04/12/22 22:00 Temperature 98.5 F Pulse Rate 101 H 102 H 102 H Respiratory Rate 16 24 H Blood Pressure 132/77 95/68 L Pulse Oximetry 98 96 Oxygen Delivery 04/13/22 00:00 04/13/22 00:00 04/13/22 00:00 Temperature 98.5 F Pulse Rate 82 82 82 Respiratory Rate 17 17 Blood Pressure 120/67 Pulse Oximetry 98 98 Oxygen Delivery Room Air 04/13/22 02:00 04/13/22 02:00 04/13/22 04:00 Temperature Pulse Rate 116 H 116 H 101 H Respiratory Rate 24 H Blood Pressure 93/76 L Pulse Oximetry 97 Oxygen Delivery 04/13/22 04:00 04/13/22 04:00 04/13/22 06:00 Temperature 98.5 F Pulse Rate 101 H 101 H 103 H Respiratory Rate 15 15 Blood Pressure 122/66 Pulse Oximetry 100 100 Oxygen Delivery Room Air 04/13/22 06:00 04/13/22 07:50 04/13/22 08:00 Temperature 98.1 F Pulse Rate 103 H 84 Respiratory Rate 25 H 18 Blood Pressure 137/77 115/64 Pulse Oximetry 98 100 100 Oxygen Delivery Room Air 04/13/22 08:00 04/13/22 10:00 Temperature Pulse Rate 96 85 Respiratory Rate 20 Blood Pressure Pulse Oximetry Oxygen Delivery Intake/Output Intake/Output: Intake & Output 04/10/22 04/11/22 04/12/22 04/13/22 23:59 23:59 23:59 23:59 Intake Total 1950 1490 Output Total 1375 1200 Balance 575 290 Meds/Results Medications: Active Medications Generic Name Dose Route Start Last Admin Trade Name Freq PRN Reason Stop Dose Admin Dextrose 12.5 gm 04/12/22 08:22 Dextrose 50% 25 Gm/50 Ml Syringe IV PUSH PRN PRN Hypoglycemi
[2022-04-13 14:06] LABS: Glucose Point of Care 337 mg/dl (65-105)
--- NOTE | 2022-04-13 14:27 | PCDIET ---
Nutrition consult for DKA admission. See Nutritional Teaching Intervention. Thank you for the consult.
[2022-04-13 16:43] LABS: Glucose Point of Care 168 mg/dl (65-105)
[2022-04-13] MEDS: INSULIN GLARGINE (*BKC) 100 UNITS/ML 30 UNITS SUB-Q (20:14)
[2022-04-13 20:44] LABS: Glucose Point of Care 155 mg/dl (65-105)
[2022-04-14 05:34] VITALS: BP 121/69; PULSE 74; RESP 17; TEMP 36.9; O2SAT 100
[2022-04-14] MEDS: INSULIN ASPART (*BKC) 100 UNITS/ML SUB-Q ×3 (06:02→12:50)
[2022-04-14 06:43] LABS: Hemoglobin 15.8 g/dL (14.0-18.0); Mean Corpuscular HGB Conc 34.3 g/dl (32-36); Mean Corpuscular Hemoglobin 31.3 pg (26-34); Mean Corpuscular Volume 91.1 fl (80-100); Platelet Count Result 159 k/mm3 (150-375); Red Blood Count 5.05 M/mm3 (4.6-6.20); Red Cell Distribution Width 12.5 % (11.5-14.5); White Blood Count 5.5 K/mm3 (4.5-10.0)
[2022-04-14 06:58] LABS: Alanine Aminotransferase 27 U/L (6-50); Albumin Level 3.9 g/dL (3.5-5.1); Alkaline Phosphatase 111 U/L (38-126); Anion Gap 11 mmol/L (8-16); Aspartate Amino Transferase 29 U/L (17-59); Bilirubin,Total 0.9 mg/dL (0.2-1.3); Blood Urea Nitrogen 10 mg/dL (9-20); Calcium 8.3 mg/dL (8.4-10.2); Carbon Dioxide 24 mmol/L (22-30); Chloride 102 mmol/L (98-107); Estimated CRCL calculation 223 ml/min; Estimated Glomerular Filt Rate > 60; Glucose 275 mg/dL (65-110); Magnesium 1.8 mg/dL (1.6-2.3); Phosphorus 3.2 mg/dL (2.5-4.5); Potassium 3.3 mmol/L (3.4-5.0); Sodium 137 mmol/L (137-145)
[2022-04-14 07:54] LABS: Glucose Point of Care 258 mg/dl (65-105)
[2022-04-14 08:00] VITALS: BP 123/68; PULSE 84; RESP 17; TEMP 35.8; O2SAT 100
[2022-04-14 11:48] LABS: Glucose Point of Care 161 mg/dl (65-105)
--- NOTE | 2022-04-14 12:18 | PM.DS ---
DS: Admitting Diagnosis Discharge Date 2001 in Admitting Diagnosis DKA DS: Discharge Diagnosis Discharge Diagnosis (1) Diabetic keto-acidosis: Qualifiers: Diabetes mellitus complication detail: without coma Diabetes mellitus type: type 1 Qualified Code(s): E10.10 - Type 1 diabetes mellitus with ketoacidosis without coma Code(s): E11.10 - Type 2 diabetes mellitus with ketoacidosis without coma Status: Inactive Assessment and Plan: Get now close blood sugars look good. Continue sliding scale insulin with basal insulin. (2) Type 1 diabetes: Code(s): E10.9 - Type 1 diabetes mellitus without complications Status: Acute Assessment and Plan: See above (3) Nausea & vomiting: Code(s): R11.2 - Nausea with vomiting, unspecified Status: Acute Assessment and Plan: Improved Continue P.r.n. Zofran (4) Leukocytosis: Code(s): D72.829 - Elevated white blood cell count, unspecified Status: Acute Assessment and Plan: Likely secondary to SIRS from DKA UA and chest x-ray were negative Cell count has improved and has normalized today Hold any antibiotics at this time DS: Summary Hospital Course Hospital Course: Patient was admitted for DKA. Elevated blood sugars positive anion gap. He was started on IV fluids and IV insulin. No infection was noted. He did exceptionally well after 24 hr she has a wound get off follow IVs and start subcu insulin as blood sugars between 102 100 currently. He is doing well and can be discharged home. Time Spent with Patient Time attestation: Total time spent providing and/or coordinating discharge services: Exam Narrative: General: Pt is alert awake and in NAD Lungs/Chest: Trachea central Clear BS B/L, No crackles or wheezing. Cardiac: RRR. Normal S1 S2. No murmurs Circulation: Pedal pulses are intact and symmetrical. Abdomen: Normal bowel sounds.. Soft. NT. ND. Extremities: No clubbing, cyanosis or edema. Warm : Brody in place Neurologic: Follows commands. Moves all 4 extremities PERRL AO x3 Skin: No Rash DS: Data Data Completed and Pending Labs on day of discharge: Labs from last 24 hours 04/14/22 04/14/22 04/14/22 11:35 07:42 06:04 WBC RBC Hgb Hct MCV MCH MCHC RDW Plt Count MPV Sodium 137 Potassium 3.3 L Chloride 102 Carbon Dioxide 24 Anion Gap 11 BUN 10 Creatinine 0.40 L Estim Creat Clear Calc 223 Estimated GFR > 60 Glucose 275 H POC Capillary Glucose 161 H 258 H Calcium 8.3 L Phosphorus 3.2 Magnesium 1.8 Total Bilirubin 0.9 AST 29 ALT 27 Alkaline Phosphatase 111 Total Protein 7.0 Albumin 3.9 04/14/22 04/13/22 04/13/22 06:04 20:12 16:40 WBC 5.5 RBC 5.05 Hgb 15.8 Hct 46.0 MCV 91.1 MCH 31.3 MCHC 34.3 RDW 12.5 Plt Count 159 MPV 9.0 Sodium Potassium Chloride Carbon Dioxide Anion Gap BUN Creatinine Estim Creat Clear Calc Estimated GFR Glucose POC Capillary Glucose 155 H 168 H Calcium Phosphorus Magnesium Total Bilirubin AST ALT Alkaline Phosphatase Total Protein Albumin 04/13/22 14:03 WBC RBC Hgb Hct MCV MCH MCHC RDW Plt Count MPV Sodium Potassium Chloride Carbon Dioxide Anion Gap BUN Creatinine Estim Creat Clear Calc Estimated GFR Glucose POC Capillary Glucose 337 H Calcium Phosphorus Magnesium Total Bilirubin AST ALT Alkaline Phosphatase Total Protein Albumin Discharge Plan Discharge Attending physician on discharge: Selwyn Carias Discharging Clinician: Selwyn Carias Patient Disposition: Home, Self-Care Activity: no preference Diet: as tolerated Patient Instructions: Antibiotic Form, Diabetic Ketoacidosis (GEN), Basic Carbohydrate Counting (DC), Diabetic Hyperglycemia (DC
== END 2022-04-14 13:00 | disposition home or self-care (01) | DRG 420 ==
LOC: ANHICU 16:50 → ANH3MEDSUR 04-13 14:28 → ANHICU 04-16 06:10
PROVIDERS: Internal Medicine; Admitting Provider Internal Medicine; PCP Internal Medicine; Visit Provider Chiropractor
DX: E10.10 Type 1 diabetes mellitus with ketoacidosis without coma (principal); D72.829 Elevated white blood cell count, unspecified; R65.10 Systemic inflammatory response syndrome (SIRS) of non-infectious origin without acute organ dysfunction; Z79.4 Long term (current) use of insulin
CPT/HCPCS: 36415; 71045; 80048; 80053; 81001; 82948; 83036; 83690; 83735; 84100; 84478; 85027; A9270; J1815; J2405; J3475; J3480; J7040; J7060